=== PATIENT | male | born 1995 | race African-American/Black ===

== ENCOUNTER 2018-06-09 18:31 | Emergency (ER) | payer OTHER ==
[~2018-06-09] VITALS: Ht 188 cm; Wt 84.1 kg
[~2018-06-09 18:31] MED LIST: NOCURR
[2018-06-09] MEDS ORDERED: IBUPROFEN 600 MG TABLET PO ONE (21:15)
[2018-06-09 22:29] VITALS: BP 122/74
== END 2018-06-09 22:30 | disposition home or self-care (01) ==
LOC: EMS 18:39
DX: S93.401A Sprain of unspecified ligament of right ankle, initial encounter (principal); W18.40XA Slipping, tripping and stumbling without falling, unspecified, initial encounter; Y93.H3 Activity, building and construction; Y92.89 Other specified places as the place of occurrence of the external cause; Y99.0 Civilian activity done for income or pay
CPT/HCPCS: 29540